=== PATIENT | male | born 1995 | race African-American/Black ===

== ENCOUNTER 2019-03-31 12:06 | Emergency (ER) | payer SELFPAY ==
[~2019-03-31] VITALS: Ht 193 cm; Wt 65.0 kg
[2019-03-31] MEDS ORDERED: IBUPROFEN 600MG TABLET PO ONE (12:15)
[2019-03-31] MEDS ORDERED: TETANUS, DIPHTHERIA, PERTUSSIS VAC/PF 0.5ML (>7YR OLD) IM ONE (12:15)
[2019-03-31] MEDS ORDERED: HYDROCODONE/ACETAMINOPHEN 5/325MG TABLET PO ONE (12:15)
[2019-03-31 12:38] LABS: HEMOGLOBIN. 14.6 g/dL (14.0-18.0); MEAN CORPUSCULAR HEMOGLOBIN 27.7 pg (28.0-32.0); MEAN CORPUSCULAR VOLUME 83.7 fL (80.0-94.0); PLATELET 148 x1000/uL (130-400); RED BLOOD CELL COUNT 5.26 mill/uL (4.7-6.1)
[2019-03-31 12:42] LABS: CHLORIDE 104 mEq/L (98-107)
[2019-03-31 12:50] VITALS: BP 124/81
[2019-03-31 13:03] LABS: PLATELET ESTIMATE NORMAL
== END 2019-03-31 13:06 | disposition left against medical advice (07) ==
LOC: ER 12:06 → CANBEDREQ 12:58 → ER 13:06
DX: S81.802A Unspecified open wound, left lower leg, initial encounter (principal); W34.09XA Accidental discharge from other specified firearms, initial encounter; Y93.89 Activity, other specified; Y92.89 Other specified places as the place of occurrence of the external cause; Y99.8 Other external cause status
CPT/HCPCS: 36415; 73590; 90471; 90715; 99284